=== PATIENT | male | born 1980 | race African-American/Black ===

== ENCOUNTER 2019-10-23 19:09 | Emergency (ER) | payer OTHER ==
[~2019-10-23] VITALS: Ht 170.2 cm; Wt 77.1 kg
[2019-10-23 19:30] VITALS: BP 124/76
--- NOTE | 2019-10-23 19:30 | NUR ---
ED Nurse Note: Patient brought in by Ra from [employer] c/o substance abuse. Unknown amount and drugs. Pt is lethargic, alert and oriented x1. Not in nay distress. No SOB. ERMD at bedside.
--- NOTE | 2019-10-23 20:18 | NUR ---
ED Nurse Note: IV line established. blood specimen collected and sent to lab.
[2019-10-23 20:46] LABS: BASOPHILS % (AUTO) 1.6 % (0.0-2.0); EOSINOPHILS % (AUTO) 0.4 % (0.0-3.0); HEMOGLOBIN 15.1 G/DL (14.2-18.0); LYMPHOCYTES % (AUTO) 14.2 % (20.0-45.0); MEAN CORPUSCULAR VOLUME 83 FL (80-99); NEUTROPHILS % (AUTO) 78.8 % (45.0-75.0); PLATELET COUNT 270 K/UL (150-450); RED BLOOD COUNT 5.65 M/UL (4.70-6.10); RED CELL DISTRIBUTION WIDTH 11.4 % (11.6-14.8); WHITE BLOOD COUNT 7.7 K/UL (4.8-10.8)
[2019-10-23 21:05] LABS: ANION GAP 9 mmol/L (5-15); BLOOD UREA NITROGEN 19 mg/dL (7-18); CALCIUM 9.8 MG/DL (8.5-10.1); CARBON DIOXIDE 28 MMOL/L (21-32); CHLORIDE 100 MMOL/L (98-107); CREATININE 1.6 MG/DL (0.55-1.30); SODIUM 137 MMOL/L (136-145)
[2019-10-23 21:09] LABS: ALANINE AMINOTRANSFERASE 38 U/L (12-78); ALBUMIN 4.2 G/DL (3.4-5.0); ALKALINE PHOSPHATASE 67 U/L (46-116); ASPARTATE AMINO TRANSFERASE 34 U/L (15-37); BILIRUBIN,TOTAL 0.6 MG/DL (0.2-1.0)
--- NOTE | 2019-10-23 21:09 | Emergency Room Report ---
History of Present Illness General Chief Complaint: Substance Abuse Source: Patient Present Illness HPI Disclaimer: Please note that this report is being documented using [employer] technology. This can lead to erroneous entry secondary to incorrect interpretation by the dictating instrument. HPI: 39-year-old male history of substance abuse presents for evaluation of bizarre behavior. Brought in by EMS for acting bizarrely in a convenience store. Patient has no recollection of today's events or how he got here. He is diaphoretic but mentating appropriately aside from being a poor historian to today's events. He has no complaints of palpitations, abdominal pain, chest pain, shortness of breath, cough, headache, blurred vision. He does admit to using K2 and crystal meth earlier today. Denies alcohol use or other drug use. PMH: Hypertension, substance abuse PSH: Reviewed Allergies: Amlodipine Social Hx: Substance abuse history Allergies: Coded Allergies: AMLODIPINE (Verified Allergy, Unknown, 10/23/19) Nursing Documentation-PMH Hx Hypertension: Yes Review of Systems All Other Systems: negative except mentioned in HPI Physical Exam Vital Signs Date Time Temp Pulse Resp B/P (MAP) Pulse Ox O2 Delivery O2 Flow Rate FiO2 10/23/19 19:23 98.2 97 18 124/76 (92) 96 Room Air General: Awake and alert, diaphoretic, no distress, resting comfortably HEENT: NC/AT. EOMI. pupils are approximately 4 mm. No nystagmus. Full visual peña. PERRLA. Dry mucous membranes. Cardiovascular: RRR. S1 and S2 normal. No murmur appreciated Resp: Normal work of breathing. No cough, wheezing or crackles appreciated Abdomen: Abdomen is soft, nondistended. Nontender Skin: Diaphoretic. Intact. Abrasion over the right chest, superficial, hemostatic MSK: Normal tone and bulk. Moving all extremities. No obvious deformity. Neuro: Awake and alert. Mentating appropriately. Medical Decision Making Diagnostic Impression: Primary Impression: Acute kidney injury Additional Impressions: Dehydration Substance abuse ER Course This is a 39-year-old male presenting for evaluation of bizarre behavior in the context of substance abuse. He denies SI/HI or acute complaints at this time. He reports using K2 as well as crystal meth earlier today. He is diaphoretic but no acute distress and arrives with stable vital signs and mentating appropriately. He has an abrasion over the right chest and states that his tetanus was updated within the last 6 months. We will start a metabolic infectious and tox work-up and give IV fluids. If he remains stable he may be discharged with outpatient follow-up. Labs Test 10/23/19 20:30 10/23/19 22:30 White Blood Count 7.7 K/UL (4.8-10.8) Red Blood Count 5.65 M/UL (4.70-6.10) Hemoglobin 15.1 G/DL (14.2-18.0) Hematocrit 47.0 % (42.0-52.0) Mean Corpuscular Volume 83 FL (80-99) Mean Corpuscular Hemoglobin 26.7 PG (27.0-31.0) Mean Corpuscular Hemoglobin Concent 32.0 G/DL (32.0-36.0) Red Cell Distribution Width 11.4 % (11.6-14.8) Platelet Count 270 K/UL (150-450) Mean Platelet Volume 7.0 FL (6.5-10.1) Neutrophils (%) (Auto) 78.8 % (45.0-75.0) Lymphocytes (%) (Auto) 14.2 % (20.0-45.0) Monocytes (%) (Auto) 5.0 % (1.0-10.0) Eosinophils (%) (Auto) 0.4 % (0.0-3.0) Basophils (%) (Auto) 1.6 % (0.0-2.0) Sodium Level 137 MMOL/L (136-145) Potassium Level 4.0 MMOL/L (3.5-5.1) Chloride Level 100 MMOL/L (98-107) Carbon Dioxide Level 28 MMOL/L (21-32) Anion Gap 9 mmol/L (5-15) Blood Urea Nitrogen 19 mg/dL (7-18) Creatinine 1.6 MG/DL (0.55-1.30) Estimat Glomerular Filtration Rate 48.4 mL/min (>60) Glucose Level 119 MG/DL (74-106) Calcium Level 9.8 MG/DL (8.5-10.1) Total Bilirubin 0.6 MG/DL (0.2-1.0) Aspartate Amino Transf (AST/SGOT) 34 U/L (15-37) Alanine Aminotransferase (ALT/SGPT) 38 U/L (12-78) Alkaline Phosphatase 67 U/L (46-116) Total Protein 8.4 G/DL (6.4-8.2) Albumin 4.2 G/DL (3.4-5.0) Globulin 4.2 g/dL Albumin/Globulin Ratio 1.0 (1.0-2.7) Salicylates Level 0.6 ug/mL (2.8-20) Acetaminophen Level < 2 MCG/ML (10-30) Serum Alcohol < 3 mg/dL Urine Color Yellow Urine Appearance Slightly cloudy Urine pH 5 (4.5-8.0) Urine Specific [place] 1.025 (1.005-1.035) Urine Protein 2+ (NEGATIVE) Urine Glucose (UA) Negative (NEGATIVE) Urine Ketones 2+ (NEGATIVE) Urine Blood Negative (NEGATIVE) Urine Nitrite Negative (NEGATIVE) Urine Bilirubin Negative (NEGATIVE) Urine Urobilinogen Normal MG/DL (0.0-1.0) Urine Leukocyte Esterase 1+ (NEGATIVE) Urine RBC 0-2 /HPF (0 - 0) Urine WBC 2-4 /HPF (0 - 0) Urine Squamous Epithelial Cells Few /LPF (NONE/OCC) Urine Bacteria Few /HPF (NONE) Urine Hyaline Casts Tntc /LPF (NONE) Urine Opiates Screen Negative (NEGATIVE) Urine Barbiturates Screen Negative (NEGATIVE) Phencyclidine (PCP) Screen Negative (NEGATIVE) Urine Amphetamines Screen Positive (NEGATIVE) Urine Benzodiazepines Screen Negative (NEGATIVE) Urine Cocaine Screen Negative (NEGATIVE) Urine Marijuana (THC) Screen Negative (NEGATIVE) Reevaluation Time: 22:50 Last Vital Signs Date Time Temp Pulse Resp B/P (MAP) Pulse Ox O2 Delivery O2 Flow Rate FiO2 10/23/19 19:30 97 18 Room Air 10/23/19 19:30 98.2 124/76 96 Reevaluation Impression Patient found to have acute kidney injury likely due to dehydration and volume losses. He received IV fluids. I discussed these findings with the patient the need to follow-up with a doctor or return to the emergency department in a week to have his levels rechecked to ensure adequate kidney recovery. He is drinking water in the emergency department was counseled on maintaining adequate levels of hydration over the next few days to ensure proper kidney function. Labs otherwise unremarkable aside from patient testing positive for amphetamines which he admits to. He continues to deny SI/HI and his vital signs are normal. He will be discharged home with outpatient follow-up. Discussed reasons to return to the emergency department. He understands and agrees with this treatment plan. Disposition: HOME, SELF-CARE Condition: Stable Matt Li MD Oct 23, 2019 21:09
[2019-10-23 22:44] LABS: APPEARANCE,URINE SLIGHTLY CLOUDY; BILIRUBIN, URINE NEGATIVE (NEGATIVE); COLOR,URINE YELLOW; GLUCOSE, URINE (UA) NEGATIVE (NEGATIVE); KETONES,URINE 2+ (NEGATIVE); LEUKOCYTE ESTERASE ,URINE 1+ (NEGATIVE); NITRITE,URINE NEGATIVE (NEGATIVE); PH,URINE 5 (4.5-8.0); PROTEIN,URINE 2+ (NEGATIVE); UROBILINOGEN,URINE NORMAL MG/DL (0.0-1.0)
[2019-10-23 22:50] VITALS: BP 125/82
--- NOTE | 2019-10-23 22:50 | NUR ---
ED Nurse Note: Pt cleared by ERMD for discharge. DC instructions was given and explained to pt and verbalized understanding of teachings. All medical deviecs such as ID band and IV line removed. Pt is AAO x4, ambulatory and left with all personal belongings.
== END 2019-10-23 22:50 | disposition home or self-care (01) ==
LOC: EDBD 19:09 → EMR 22:36
DX: N17.9 Acute kidney failure, unspecified (principal); E86.0 Dehydration; F19.10 Other psychoactive substance abuse, uncomplicated; I10 Essential (primary) hypertension; Z88.8 Allergy status to other drugs, medicaments and biological substances
CPT/HCPCS: 36415; 80053; 80307; 81003; 85025; 96360; G0480; G0481; Z7502; 99284